=== PATIENT | female | born 1995 | race Caucasian/White ===

== ENCOUNTER 2018-08-20 21:49 | Outpatient (CLI) | payer MEDICAID ==
--- NOTE | 2018-08-21 04:57 | Ultrasound Report ---
Reason: ABDOMINAL PAIN,RIGHT UPPER QUADRANT Procedure Date: 08/20/2018 Accession Number: [id number] / [id number] Procedure: US - Abdomen Complete CPT Code: FULL RESULT: EXAM: ABDOMEN ULTRASOUND EXAM DATE: 08/20/2018 11:57 PM. CLINICAL HISTORY: ABDOMINAL PAIN, RIGHT UPPER QUADRANT. COMPARISON: None. TECHNIQUE: Real-time scanning was performed with static images obtained. FINDINGS: Liver: Normal in size and echotexture. 10.7 cm. Main portal vein flow: Hepatopetal. Gallbladder: Normal. No stones, wall thickening, or sonographic Tcuker's sign. Biliary System: Common bile duct measures 1.6 mm. No intrahepatic or extrahepatic ductal dilatation. Pancreas: Visualized portion is unremarkable. Some portions obscured by bowel gas. Kidneys: Right: 10.3 cm longitudinally. Normal. No contour-deforming mass, stones, or hydronephrosis. Left: 9.8 cm longitudinally. Normal. No contour-deforming mass, stones, or hydronephrosis. Spleen: 8.5 cm. Normal in size and echotexture. Aorta and Inferior Vena Cava: Unremarkable where seen. Other: None. IMPRESSION: Normal abdomen ultrasound. [facility]
== END 2018-08-20 21:50 | disposition home or self-care (01) ==
LOC: DI 21:49
PROVIDERS: ATTEND Family Medicine
DX: R10.11 Right upper quadrant pain (principal)
CPT/HCPCS: 76700

== ENCOUNTER 2018-09-05 15:17 | Outpatient (CLI) | payer MEDICAID | END 2018-09-05 23:59 | disposition home or self-care (01) | LOC: LAB.R 15:17 | PROVIDERS: ATTEND Family Medicine | DX: R10.11 Right upper quadrant pain (principal) | CPT/HCPCS: 83630; 87045; 87046; 87177; 87209; 87493 ==